=== PATIENT | female | born 1940 | race Caucasian/White ===

== ENCOUNTER 2017-07-14 03:42 | Outpatient (CLI) | payer MEDICARE, MEDICAID ==
[~2017-07-14 03:42] MED LIST: ASPI-1009 PO; ENAL1TAB9 PO; GLIM4TAB79 PO; HCTZ25T PO; LANTUS SQ; LIRA0.6P SQ; LOP25T PO
== END 2017-07-14 23:59 | disposition home or self-care (01) ==
LOC: DIABETIC 03:42
PROVIDERS: ATTEND Specialist
DX: E11.9 Type 2 diabetes mellitus without complications (principal); I10 Essential (primary) hypertension; F17.200 Nicotine dependence, unspecified, uncomplicated; Z85.3 Personal history of malignant neoplasm of breast
CPT/HCPCS: G0108

== ENCOUNTER 2017-10-20 02:55 | Outpatient (CLI) | payer MEDICARE, MEDICAID | END 2017-10-20 23:59 | disposition home or self-care (01) | LOC: DIABETIC 02:55 | PROVIDERS: ATTEND Specialist | DX: E11.22 Type 2 diabetes mellitus with diabetic chronic kidney disease (principal); I12.9 Hypertensive chronic kidney disease with stage 1 through stage 4 chronic kidney disease, or unspecified chronic kidney disease; N18.9 Chronic kidney disease, unspecified; F17.200 Nicotine dependence, unspecified, uncomplicated | CPT/HCPCS: G0108 ==

== ENCOUNTER 2022-05-20 10:07 | Day surgery (SDC) | payer MEDICARE, OTHER ==
[2022-05-19 10:15] LABS: BASOPHILS # (AUTO) 0.1 X10'3 (0-0.2); BASOPHILS % (AUTO) 0.9 % (0-1); EOSINOPHILS # (AUTO) 0.2 X10'3 (0-0.9); EOSINOPHILS % (AUTO) 2.3 % (0-6); HEMATOCRIT 39.5 % (35.0-45.0); HEMOGLOBIN 12.9 g/dl (12.0-16.0); LYMPHOCYTES # (AUTO) 0.9 X10'3 (1.1-4.8); LYMPHOCYTES % (AUTO) 12.7 % (21-51); MEAN CORPUSCULAR HEMOGLOBIN 29.3 PG (27.0-31.0); MEAN CORPUSCULAR HGB CONC 32.7 g/dL (33.0-36.5); MEAN CORPUSCULAR VOLUME 89.6 FL (78-98); MEAN PLATELET VOLUME 10.1 FL (7.4-10.4); MONOCYTES # (AUTO) 0.6 X10'3 (0-0.9); MONOCYTES % (AUTO) 9.1 % (2-12); NEUTROPHILS # (AUTO) 5.1 X10'3 (1.8-7.7); PLATELET COUNT 225 X10'3 (140-440); RED BLOOD COUNT 4.41 X10'6 (4.20-5.60); RED CELL DISTRIBUTION WIDTH 15.4 % (11.5-14.5); WHITE BLOOD COUNT 6.7 X10'3 (4.5-11.0)
[2022-05-19 10:24] LABS: ALBUMIN 3.8 G/DL (3.4-5.0); ANION GAP 8 (8-16); BLOOD UREA NITROGEN 40 MG/DL (7-18); BUN/CREATININE RATIO 27.6 (6.6-38.0); CALCIUM 9.3 MG/DL (8.5-10.1); CHLORIDE 101 MMOL/L (99-107); CREATININE 1.45 MG/DL (0.40-0.90); GLUCOSE 179 MG/DL (70-104); POTASSIUM 3.9 MMOL/L (3.5-5.1); SODIUM 139 MMOL/L (135-145); TOTAL CARBON DIOXIDE 29.6 MMOL/L (24-32); eGFR 34 ML/MIN
[2022-05-19 10:27] LABS: APTT 25 SECONDS (22-32)
[2022-05-20] VITALS (10 sets, daily range): BP systolic 137–160; BP diastolic 53–85
[~2022-05-20] VITALS: Ht 162.6 cm; Wt 87.1 kg
[~2022-05-20 10:07] MED LIST changes: -ASPI-1009 PO; +CARV12.5 PO; -ENAL1TAB9 PO; +EVOL140P3 SQ; +EZET10TA48 PO; +FURO-150 PO; +FURO40TA4 PO; +GLIM4TAB7 PO; -GLIM4TAB79 PO; -HCTZ25T PO; +LEVO75TA PO; -LIRA0.6P SQ; +LIRA0.6P2 SUBCUT; -LOP25T PO; +LORA10TA7 PO; +LOSA25TA41 PO; +MONT-40 PO; +PIOG30TA71 PO; +POTA10CA44 PO
[2022-05-20] MEDS ORDERED: acetylcysteine 200 MG/ml 4ml vial PO PRN (10:33)
[2022-05-20] MEDS ORDERED: sodium bicarbonate (8.4%) inj. 150 ML in dextrose 5%-water 1,000 ML IV ONE ×2 (10:35→15:55)
[2022-05-20] MEDS ORDERED: LORazepam 0.5 MG tablet PO PRN (10:50)
[2022-05-20] MEDS ORDERED: normal saline 1,000 ML IV SCH (10:50)
[2022-05-20] MEDS ORDERED: diphenhydrAMINE 25mg capsule PO PRN (10:50)
[2022-05-20] MEDS ORDERED: CLOP75TA15 PO (11:52)
[2022-05-20] MEDS ORDERED: AMIO200T62 PO (11:52)
[2022-05-20] MEDS ORDERED: ozempic (11:52)
[2022-05-20] MEDS ORDERED: POTA-82 PO (12:08)
[2022-05-20] MEDS ORDERED: SEMA0.25 SQ (12:08)
[2022-05-20] MEDS ORDERED: PANT40TA54 PO (12:08)
[2022-05-20] MEDS ORDERED: AMA1T PO (12:22)
[2022-05-20] MEDS ORDERED: FERR240T5 PO (12:22)
[2022-05-20] MEDS ORDERED: ACET-3209 PO (12:22)
[2022-05-20] MEDS ORDERED: MULT-1085 PO (12:22)
[2022-05-20] MEDS ORDERED: ALBU8.5H17 INH (12:22)
[2022-05-20] MEDS ORDERED: nitroGLYCERIN-Tridil 50MG/D5W 250 ML IV ONE (13:27)
[2022-05-20] MEDS ORDERED: verapamil 2.5 mg/ml inj IV ONE (13:27)
[2022-05-20] MEDS ORDERED: midazolam 1 mg/ML 2ml injection ONE (13:28)
[2022-05-20] MEDS ORDERED: iohexol 350 MG/ML 50ML vial IV ONE ×2 (13:28→14:37)
[2022-05-20] MEDS ORDERED: fentaNYL/PF 50MCG/1 ML 2ML syringe ONE (13:28)
[2022-05-20] MEDS ORDERED: LIDOcaine 1% 30ml preserv. free vial ONE (13:28)
[2022-05-20] MEDS ORDERED: heparin 1,000unit/ml 10ml vial 10 ML ONE (13:28)
[2022-05-20] MEDS ORDERED: furosemide 40mg/4ml inj ONE (14:49)
[2022-05-20 15:10] LABS: ISTAT Hct MIX 37 %PCV (35-45); ISTAT O2 SATURATION MIX VENOUS 94 % (60-80); ISTAT SOURCE BLNK
[2022-05-20 15:11] LABS: ISTAT Hct MIX 36 %PCV (35-45); ISTAT O2 SATURATION MIX VENOUS 67 % (60-80); ISTAT SOURCE VEN
[2022-05-20] MEDS ORDERED: potassium Cl 20 mEq SR tablet PO ONE (15:50)
[2022-05-20] MEDS ORDERED: furosemide 40mg/4ml inj IV ONE (15:50)
== END 2022-05-20 20:05 | disposition home or self-care (01) ==
LOC: SSTAY O 10:07
PROVIDERS: ATTEND Internal Medicine Cardiovascular Disease
DX: I25.10 Atherosclerotic heart disease of native coronary artery without angina pectoris (principal); R94.39 Abnormal result of other cardiovascular function study; I10 Essential (primary) hypertension; I50.9 Heart failure, unspecified; I11.0 Hypertensive heart disease with heart failure; J44.9 Chronic obstructive pulmonary disease, unspecified; Z79.899 Other long term (current) drug therapy; Z98.890 Other specified postprocedural states
CPT/HCPCS: 36415; 76937; 80048; 82803; 82948; 85014; 85025; 85610; 85730; 93005; 93460; 99152; 99153; C1751; C1769; J1644; J1940; J2250; J3010; J3490; J7030; J7070; Q0163; Q9967; A6258; A6402

== ENCOUNTER 2022-06-10 10:54 | Outpatient (CLI) | payer MEDICARE, OTHER ==
[~2022-06-10] VITALS: Ht 161.3 cm; Wt 81.6 kg
[~2022-06-10 10:54] MED LIST changes: +ACET-3209 PO; +ALBU8.5H17 INH; +AMA1T PO; +AMIO200T62 PO; +CLOP75TA15 PO; +FERR240T5 PO; +MULT-1085 PO; +PANT40TA54 PO; +POTA-82 PO; +SEMA0.25 SQ; +ozempic
[2022-06-10 11:39] LABS: BASOPHILS % (AUTO) 0.4 % (0-1); EOSINOPHILS # (AUTO) 0.1 X10'3 (0-0.9); EOSINOPHILS % (AUTO) 1.5 % (0-6); HEMATOCRIT 39.8 % (35.0-45.0); HEMOGLOBIN 12.9 g/dl (12.0-16.0); LYMPHOCYTES # (AUTO) 0.8 X10'3 (1.1-4.8); LYMPHOCYTES % (AUTO) 9.3 % (21-51); MEAN CORPUSCULAR HEMOGLOBIN 29.6 PG (27.0-31.0); MEAN CORPUSCULAR HGB CONC 32.3 g/dL (33.0-36.5); MEAN CORPUSCULAR VOLUME 91.5 FL (78-98); MEAN PLATELET VOLUME 10.5 FL (7.4-10.4); MONOCYTES # (AUTO) 0.5 X10'3 (0-0.9); MONOCYTES % (AUTO) 6.2 % (2-12); NEUTROPHILS # (AUTO) 7.3 X10'3 (1.8-7.7); NEUTROPHILS % (AUTO) 82.6 % (42-75); PLATELET COUNT 221 X10'3 (140-440); RED BLOOD COUNT 4.35 X10'6 (4.20-5.60); RED CELL DISTRIBUTION WIDTH 15.2 % (11.5-14.5); WHITE BLOOD COUNT 8.8 X10'3 (4.5-11.0)
[2022-06-10 11:47] LABS: APTT 25 SECONDS (22-32)
[2022-06-10 11:49] LABS: ALANINE AMINOTRANSFERASE 30 U/L (12-78); ALBUMIN 3.9 G/DL (3.4-5.0); ALBUMIN/GLOBULIN RATIO 1.1 (1.1-1.5); ALKALINE PHOSPHATASE 132 IU/L (46-116); ANION GAP 15 (8-16); ASPARTATE AMINO TRANSFERASE 24 U/L (10-37); BILIRUBIN,TOTAL 0.5 MG/DL (0.1-1.0); BLOOD UREA NITROGEN 49 MG/DL (7-18); BUN/CREATININE RATIO 31.4 (6.6-38.0); CALCIUM 9.1 MG/DL (8.5-10.1); CHLORIDE 101 MMOL/L (99-107); CREATININE 1.56 MG/DL (0.40-0.90); GLUCOSE 213 MG/DL (70-104); POTASSIUM 4.2 MMOL/L (3.5-5.1); SODIUM 141 MMOL/L (135-145); TOTAL CARBON DIOXIDE 25.4 MMOL/L (24-32); TOTAL PROTEIN 7.4 G/DL (6.4-8.2); eGFR 32 ML/MIN
[2022-06-10] MEDS ORDERED: IODIXANOL 320 MG/ML INFUS..BTL 100ML IV ONE (12:19)
[2022-06-10 14:34] LABS: ABG BASE EXCESS 0.5 mmol/L (-2.0-2.0); ABG OXYGEN SATURATION 95.2 % (94-97); ABG PCO2 (T) 35.1 mmHg (32.0-45.0); ABG PO2 (T) 75.2 mmHg (75.0-100.0); ALLEN'S TEST POSITIVE; FCOHb 0.6 % (0.0-3.9); FMetHb 0.3 % (0.0-1.5); FO2Hb 94.3 % (94-97); TOTAL HEMOGLOBIN 13.4 G/dl (12.0-16.0)
[2022-06-10] MEDS ORDERED: albuterol 2.5 MG/3 ML nebule NEB PRN (14:45)
== END 2022-06-10 23:59 | disposition home or self-care (01) ==
LOC: RAD 10:54
PROVIDERS: ATTEND Internal Medicine Cardiovascular Disease
DX: Z01.818 Encounter for other preprocedural examination (principal); J94.8 Other specified pleural conditions; E04.1 Nontoxic single thyroid nodule; I65.23 Occlusion and stenosis of bilateral carotid arteries; I70.0 Atherosclerosis of aorta; I35.0 Nonrheumatic aortic (valve) stenosis; Z87.891 Personal history of nicotine dependence; Z79.899 Other long term (current) drug therapy
CPT/HCPCS: 36415; 36600; 71046; 71275; 74174; 80053; 82803; 85018; 85025; 85610; 85730; 93880; 94060; 94727; 94729; 94760; Q9967

== ENCOUNTER 2022-08-06 08:30 | Inpatient (IN) | payer MEDICARE, OTHER ==
[2022-07-30 16:48] LABS: BASOPHILS % (AUTO) 0.1 % (0-1); EOSINOPHILS % (AUTO) 0.3 % (0-6); LYMPHOCYTES # (AUTO) 0.6 X10'3 (1.1-4.8); LYMPHOCYTES % (AUTO) 3.7 % (21-51); MEAN CORPUSCULAR HEMOGLOBIN 29.9 PG (27.0-31.0); MEAN CORPUSCULAR HGB CONC 32.8 g/dL (33.0-36.5); MEAN CORPUSCULAR VOLUME 91.2 FL (78-98); MEAN PLATELET VOLUME 11.2 FL (7.4-10.4); MONOCYTES # (AUTO) 0.9 X10'3 (0-0.9); MONOCYTES % (AUTO) 5.6 % (2-12); NEUTROPHILS # (AUTO) 14.9 X10'3 (1.8-7.7); NEUTROPHILS % (AUTO) 90.3 % (42-75); PRE OP HEMATOCRIT 30.9 % (35.0-45.0); PRE OP PLATELET COUNT 230 X10'3 (140-440); RED BLOOD COUNT 3.38 X10'6 (4.20-5.60); RED CELL DISTRIBUTION WIDTH 14.5 % (11.5-14.5)
[2022-07-30 16:51] LABS: PRE OP HEMOGLOBIN 10.1 g/dL (12.0-16.0)
[2022-07-30 16:55] LABS: PRE OP INR 1.1 INR
[2022-07-30 16:56] LABS: HEMOGLOBIN A1C 7.3 % (4.5-6.2)
[2022-07-30 17:09] LABS: ALBUMIN 2.6 G/DL (3.4-5.0); ALBUMIN/GLOBULIN RATIO 0.6 (1.1-1.5); ALKALINE PHOSPHATASE 129 IU/L (46-116); BLOOD UREA NITROGEN 60 MG/DL (7-18); BUN/CREATININE RATIO 32.4 (6.6-38.0); CALCIUM 9.1 MG/DL (8.5-10.1); CHLORIDE 94 MMOL/L (99-107); CREATININE 1.85 MG/DL (0.40-0.90); PRE OP ALT 57 U/L (30-65); PRE OP ANION GAP 11 (8-16); PRE OP AST 58 U/L (10-37); PRE OP BILIRUB, TOTAL 0.9 MG/DL (0.0-1.0); PRE OP GLUCOSE 132 MG/DL (70-104); PRE OP SODIUM 131 MMOL/L (135-145); TOTAL CARBON DIOXIDE 25.9 MMOL/L (24-32); eGFR 26 ML/MIN
[2022-07-30 17:37] LABS: PRE OP PROTIME 11.4 SECONDS (9.0-12.0)
[~2022-08-06] VITALS: Ht 162.6 cm; Wt 81.5 kg
[~2022-08-06 08:30] MED LIST changes: -ACET-3209 PO; -EVOL140P3 SQ; -FURO40TA4 PO; -GLIM4TAB7 PO; -LIRA0.6P2 SUBCUT; -LOSA25TA41 PO; -PIOG30TA71 PO; -POTA10CA44 PO; -ozempic
[2022-08-17 11:54] LABS: CLARITY,URINE SLIGHTLY CLOUDY (Clear); COLOR,URINE STRAW (Yellow); GLUCOSE, URINE NEGATIVE (Neg); KETONES,URINE NEGATIVE (Neg); LEUKOCYTE ESTERASE ,URINE NEGATIVE (Neg); NITRITES, URINE NEGATIVE (Neg); OCCULT BLOOD,URINE NEGATIVE (Neg); PH,URINE 5.5 (4.8-8.0); PROTEIN,URINE NEGATIVE (Neg); UROBILINOGEN,URINE 0.2 E.U/dL (0.2-1.0)
[2022-08-17 12:00] LABS: UA COLLECTION TYPE CLN CATCH MIDSTREAM
[2022-08-17 12:01] LABS: SQUAMOUS EPITHELIAL CELL,UR FEW /LPF (FEW)
[2022-08-17 12:02] LABS: BACTERIA,URINE 1+ /HPF (Neg); RBC,URINE 0-2 /HPF (0-2); WBC,URINE 0-4 /HPF (0-4)
[2022-08-17 12:07] LABS: BASOPHILS # (AUTO) 0.1 X10'3 (0-0.2); BASOPHILS % (AUTO) 0.8 % (0-1); EOSINOPHILS # (AUTO) 0.2 X10'3 (0-0.9); EOSINOPHILS % (AUTO) 1.4 % (0-6); LYMPHOCYTES # (AUTO) 0.9 X10'3 (1.1-4.8); MEAN CORPUSCULAR HEMOGLOBIN 29.5 PG (27.0-31.0); MEAN CORPUSCULAR VOLUME 92.2 FL (78-98); MEAN PLATELET VOLUME 10.5 FL (7.4-10.4); MONOCYTES # (AUTO) 0.9 X10'3 (0-0.9); NEUTROPHILS # (AUTO) 9.4 X10'3 (1.8-7.7); NEUTROPHILS % (AUTO) 81.8 % (42-75); PRE OP HEMATOCRIT 31.9 % (35.0-45.0); PRE OP PLATELET COUNT 261 X10'3 (140-440); RED BLOOD COUNT 3.46 X10'6 (4.20-5.60)
[2022-08-17 12:13] LABS: PRE OP HEMOGLOBIN 10.2 g/dL (12.0-16.0)
[2022-08-17 12:18] LABS: PRE OP INR 1.1 INR; PRE OP PROTIME 11.2 SECONDS (9.0-12.0)
[2022-08-17 12:22] LABS: ALBUMIN 3.3 G/DL (3.4-5.0); ALBUMIN/GLOBULIN RATIO 0.9 (1.1-1.5); ALKALINE PHOSPHATASE 105 IU/L (46-116); BLOOD UREA NITROGEN 51 MG/DL (7-18); BUN/CREATININE RATIO 34.7 (6.6-38.0); CALCIUM 8.9 MG/DL (8.5-10.1); CHLORIDE 97 MMOL/L (99-107); CREATININE 1.47 MG/DL (0.40-0.90); PRE OP ALT 30 U/L (30-65); PRE OP ANION GAP 5 (8-16); PRE OP AST 30 U/L (10-37); PRE OP BILIRUB, TOTAL 0.5 MG/DL (0.0-1.0); PRE OP SODIUM 135 MMOL/L (135-145); TOTAL CARBON DIOXIDE 33.1 MMOL/L (24-32); TOTAL PROTEIN 6.9 G/DL (6.4-8.2); eGFR 34 ML/MIN
[2022-08-17 12:27] LABS: PRE OP GLUCOSE 221 MG/DL (70-104)
[2022-08-20] VITALS (24 sets, daily range): BP systolic 106–189; BP diastolic 30–86
[2022-08-20] MEDS ORDERED: vancomycin 1,500 MG in NS 300ml IV soln IV ONE (05:30)
[2022-08-20] MEDS ORDERED: famotidine 20mg tablet PO ONE (05:30)
[2022-08-20] MEDS ORDERED: DOCUMENT DATE & TIME OF BETA-BLOCKER PO ONE (05:30)
[2022-08-20] MEDS ORDERED: nitroPRUSSIDE (NIPRIDE) (200MCG/ML) 100ML Drip IV SCH (05:30)
[2022-08-20] MEDS ORDERED: ondansetron/PF 4mg/2ml inj IV PRN ×3 (05:30→10:35)
[2022-08-20] MEDS ORDERED: phenylephrine inj 50 MG in normal saline 250ml IV solN IV SCH (06:00)
[2022-08-20] MEDS ORDERED: aspirin 325mg tablet PO ONE (06:00)
[2022-08-20] MEDS ORDERED: protamine sulfate 10mg/ml inj. ONE (06:05)
[2022-08-20] MEDS ORDERED: LIDOcaine 1% (10mg/ml) 2ml vial ONE (06:31)
[2022-08-20] MEDS ORDERED: morphine 2 MG/ML inj. syringe IV PRN (07:10)
[2022-08-20] MEDS ORDERED: fentaNYL/PF 50MCG/1 ML 2ML syringe IV PRN ×2 (07:10)
[2022-08-20] MEDS ORDERED: hydrALAZINE 20mg/ml inj. IV PRN ×2 (07:10→10:35)
[2022-08-20] MEDS ORDERED: ringers solution, lacted 1,000 ML IV SCH (07:10)
[2022-08-20] MEDS ORDERED: labetalol 20mg/4ml (5mg/ml) syringe IV PRN ×2 (07:10→10:35)
[2022-08-20] MEDS ORDERED: morphine 4 MG/ML inj SYRINge IV PRN (07:10)
[2022-08-20] MEDS: normal saline 500ml IV soln 500 ML IV SCH (07:39)
--- NOTE | 2022-08-20 07:40 | NUR ---
BETA BENJI TQAKEN 08-19-22 IN THE AM
[2022-08-20] MEDS ORDERED: LIDOcaine 1% 30ml preserv. free vial ONE (08:52)
[2022-08-20] MEDS ORDERED: iohexol 350 MG/ML 50ML vial IV ONE ×2 (08:52→08:57)
[2022-08-20] MEDS ORDERED: heparin 1,000 UNITS/NS 500ml 1,500 ML ONE (08:52)
[2022-08-20] MEDS ORDERED: iohexol 350MG/ML 100ml bottle IV ONE (08:52)
[2022-08-20] MEDS ORDERED: sevoflurane 250ml liquid IH ONE (09:01)
[2022-08-20] MEDS ORDERED: fentaNYL/PF 50MCG/1 ML 2ML syringe ONE (09:07)
[2022-08-20] MEDS ORDERED: propofol inj 20 ML IV ONE (10:26)
[2022-08-20] MEDS ORDERED: heparin 1,000unit/ml 10ml vial 10 ML ONE (10:26)
[2022-08-20] MEDS ORDERED: potassium Cl 20mEq/100mL bag 100 ML IV PRN (10:35)
[2022-08-20] MEDS ORDERED: dextrose 50%-water 50ml dispensing syringe IV PRN ×2 (10:35)
[2022-08-20] MEDS ORDERED: glucagon, human recombinant 1mg kit SUBCUT PRN (10:35)
[2022-08-20] MEDS ORDERED: magnesium 4gm in 100ml NS 100 ML IV PRN (10:35)
[2022-08-20] MEDS ORDERED: proCHLORperazine 10 MG/2 ml inj IV PRN (10:35)
[2022-08-20] MEDS ORDERED: ALPRAZolam 0.25mg tablet PO PRN (10:35)
[2022-08-20] MEDS ORDERED: acetaminophen 325mg tablet PO PRN (10:35)
[2022-08-20] MEDS ORDERED: insulin regular, human U-100 3ml vial - multi-dose SQ SCH (10:35)
[2022-08-20] MEDS ORDERED: DEXTROSE 15 GM of carb/4 tabs (each vial/BOTTLE has 4 tablets) PO PRN ×2 (10:35)
[2022-08-20] MEDS ORDERED: potassium Cl 20 mEq SR tablet PO PRN (10:35)
[2022-08-20] MEDS ORDERED: pantoprazole 40mg Tablet.DR PO PRN (10:35)
[2022-08-20] MEDS ORDERED: magnesium 2GM in 50ml NS 50 ML IV PRN (10:35)
[2022-08-20] MEDS ORDERED: potassium Cl 40MEQ/270ML bag 250 ML IV PRN (10:35)
[2022-08-20] MEDS ORDERED: potassium Cl 40MEQ/1/2NS 520ml 520 ML IV PRN (10:35)
[2022-08-20] MEDS ORDERED: potassium CL 10mEq/100ml bag 100 ML IV PRN (10:35)
[2022-08-20] MEDS ORDERED: MESSAGE TO PHARMACY PO ONE (10:35)
[2022-08-20] MEDS ORDERED: diphenhydrAMINE 25mg capsule PO PRN (10:35)
[2022-08-20] MEDS ORDERED: docusate sod 100mg capsule PO PRN (10:35)
--- NOTE | 2022-08-20 10:37 | NUR ---
Received from OR via HOSPITAL BED, accompanied by Anesthesiologist DR AMBROSE and report given by AnesthESIOLOGIST DR AMBROSE. PT PRESENTS WITH PIV 20G RIGHT FOREARM, ART LINE RIGHT WRIST, PEDAL PULSES FOUND WITH DOPPLER. VSS. Addendum: 08/20/22 at 1130 by Denise Morgan RN, RN Amended: Links added.
--- NOTE | 2022-08-20 11:00 | NUR ---
DR SOMERS AT BEDSIDE. PT HAS BRUISING ON RIGHT GROIN. DR SOMERS REPORTS THAT THE BRUISING IS FROM A DIFFERENT PROCEDURE FROM A FEW MONTHS AGO. Addendum: 08/20/22 at 1147 by Denise Morgan RN, RN Amended: Links added.
--- NOTE | 2022-08-20 12:45 | NUR ---
Patient in room PCU 3023. I have received report from Denise CALLEJAS and had the opportunity to ask questions and assume patient care. Pt settled into room. No distress. VS [place], adeolact site [facility]. Addendum: 08/20/22 at 1356 by Anitra Monteiro RN Amended: Links added.
--- NOTE | 2022-08-20 12:47 | NUR ---
Report called to receiving nurse NAUN CALLEJAS. Transferred via HOSPITAL BED WITH MONITOR TO ROOM 3023C BY IRENE CALLEJAS AND KING CALLEJAS. BED IN LOW LOCKED POSITION, CALL LIGHT IN REACH. Belongings TAKEN TO ROOM 3023C , ONE PT BELINGING BAG. Special Issues communicated to receiving nurse. Addendum: 08/20/22 at 1252 by Denise Morgan RN, RN Amended: Links added.
[2022-08-20] MEDS: normal saline 1000ml 1,000 ML IV SCH ×2 (13:00→20:35)
--- NOTE | 2022-08-20 13:29 | NUR ---
Per EMR pt with T2DM, well controlled for geriatric age with A1c 7.3%, DM education not warranted at this time. Will continue to follow. Addendum: 08/20/22 at [address] Amended: Links added.
[2022-08-20] MEDS ORDERED: albuterol 2.5 MG/3 ML nebule NEB PRN (14:20)
[2022-08-20] MEDS: sod chloride 0.9% 10ml flush syringe IV SCH (15:02)
[2022-08-20] MEDS ORDERED: ceFAZolin 1GM/D5W- ADD-VANTAGE 50 ML IV SCH (16:00)
--- NOTE | 2022-08-20 18:25 | NUR ---
Patient in room PCU 3023. I have received report from Anitra CALLEJAS and had the opportunity to ask questions and assume patient care.
--- NOTE | 2022-08-20 18:26 | NUR ---
Problems reprioritized. Patient report given, questions answered & plan of care reviewed with Dayana MEDLEY. Bedside report completed. Pt no distress.Call light in reach. Groin sites unchanged. Addendum: 08/20/22 at 1827 by Anitra Monteiro RN Amended: Links added.
[2022-08-20] MEDS: vancomycin/NS 1 GM ADD-VANTAGE 250 ML IV SCH (20:28)
[2022-08-20] MEDS: carvedilol 6.25mg tablet PO SCH (20:38)
[2022-08-20] MEDS ORDERED: insulin glargine (Lantus) pen - multi-dose SQ SCH (21:00)
[2022-08-21 02:00] VITALS: BP 118/34
[2022-08-21 06:00] VITALS: BP 116/36
--- NOTE | 2022-08-21 06:13 | NUR ---
Problems reprioritized. Patient report given, questions answered & plan of care reviewed with Anitra CALLEJAS.
--- NOTE | 2022-08-21 06:21 | NUR ---
Patient in room PCU 2432J. I have received report from and had the opportunity to ask questions and assume patient care.Bedside report ccompleted. Groin sites stable. Call light in reach. Addendum: 08/21/22 at 0622 by Anitra Monteiro RN Amended: Links added.
[2022-08-21] MEDS: normal saline 500ml IV soln 500 ML IV SCH (06:30)
[2022-08-21] MEDS: normal saline 1000ml 1,000 ML IV SCH (06:35)
--- NOTE | 2022-08-21 06:53 | NUR ---
Pt C/O urinating in bed. Linen change provided. Pt C/O feeling cold all the time. Warm blanket given. Pt C/O her cell phone being , Tub Washer provided. Addendum: 08/21/22 at 0655 by Anitra Monteiro RN wrong PT
[2022-08-21 07:43] LABS: BASOPHILS % (AUTO) 0.7 % (0-1); EOSINOPHILS # (AUTO) 0.3 X10'3 (0-0.9); EOSINOPHILS % (AUTO) 5.7 % (0-6); HEMATOCRIT 23.8 % (35.0-45.0); HEMOGLOBIN 7.6 g/dl (12.0-16.0); LYMPHOCYTES # (AUTO) 0.7 X10'3 (1.1-4.8); LYMPHOCYTES % (AUTO) 12.7 % (21-51); MEAN CORPUSCULAR HEMOGLOBIN 29.7 PG (27.0-31.0); MEAN CORPUSCULAR HGB CONC 31.8 g/dL (33.0-36.5); MEAN CORPUSCULAR VOLUME 93.1 FL (78-98); MEAN PLATELET VOLUME 10.6 FL (7.4-10.4); MONOCYTES # (AUTO) 0.6 X10'3 (0-0.9); MONOCYTES % (AUTO) 10.5 % (2-12); NEUTROPHILS % (AUTO) 70.4 % (42-75); PLATELET COUNT 149 X10'3 (140-440); RED BLOOD COUNT 2.55 X10'6 (4.20-5.60); RED CELL DISTRIBUTION WIDTH 15.6 % (11.5-14.5); WHITE BLOOD COUNT 5.7 X10'3 (4.5-11.0)
[2022-08-21] MEDS: carvedilol 6.25mg tablet PO SCH (07:52)
[2022-08-21] MEDS: vancomycin/NS 1 GM ADD-VANTAGE 250 ML IV SCH (07:54)
[2022-08-21] MEDS ORDERED: potassium Cl 20 mEq SR tablet PO SCH (08:00)
[2022-08-21] MEDS ORDERED: pantoprazole 40mg Tablet.DR PO SCH (08:00)
[2022-08-21] MEDS ORDERED: clopidogrel 75mg tablet PO SCH (08:00)
[2022-08-21] MEDS ORDERED: ezetimibe 10mg tablet PO SCH (08:00)
[2022-08-21] MEDS: sod chloride 0.9% 10ml flush syringe IV SCH ×2 (08:00)
[2022-08-21] MEDS ORDERED: amiodarone 200mg tablet PO SCH (08:00)
[2022-08-21] MEDS ORDERED: ferrous gluconate 324mg tablet PO SCH (08:00)
[2022-08-21] MEDS ORDERED: furosemide 20MG tablet PO SCH (08:00)
[2022-08-21 08:05] LABS: ALANINE AMINOTRANSFERASE 18 U/L (12-78); ALBUMIN 2.7 G/DL (3.4-5.0); ALBUMIN/GLOBULIN RATIO 0.9 (1.1-1.5); ALKALINE PHOSPHATASE 78 IU/L (46-116); ANION GAP 5 (8-16); ASPARTATE AMINO TRANSFERASE 24 U/L (10-37); BILIRUBIN,TOTAL 0.4 MG/DL (0.1-1.0); BLOOD UREA NITROGEN 39 MG/DL (7-18); BUN/CREATININE RATIO 35.8 (6.6-38.0); CALCIUM 8.2 MG/DL (8.5-10.1); CHLORIDE 103 MMOL/L (99-107); CREATININE 1.09 MG/DL (0.40-0.90); GLUCOSE 214 MG/DL (70-104); MAGNESIUM 2.2 MG/DL (1.5-2.4); POTASSIUM 3.7 MMOL/L (3.5-5.1); SODIUM 138 MMOL/L (135-145); TOTAL PROTEIN 5.6 G/DL (6.4-8.2); eGFR 48 ML/MIN
[2022-08-21] MEDS: insulin Lispro (HumaLOG) vial - multi-dose SQ SCH ×2 (09:07→14:10)
[2022-08-21 09:12] LABS: ANISOCYTOSIS 1+; LARGE PLATELETS FEW
[2022-08-21 09:13] LABS: POLYCHROMASIA 1+
[2022-08-21 09:14] LABS: PLATELET ESTIMATE NORMAL
[2022-08-21 10:15] VITALS: BP 114/32
--- NOTE | 2022-08-21 15:09 | NUR ---
All written and verbal orders for D/C given, all questions answered. Pt stated she had all belongs. post op activity instructions reviewed. Pt groin site [place] [facility]. Pt left hospital via W/C, home with family Addendum: 08/21/22 at 1512 by Anitra Monteiro RN Amended: Links added.
== END 2022-08-21 14:45 | disposition home or self-care (01) | DRG 266 ==
LOC: PAS IN 08-20 06:22 → PCU 3S 08-20 12:52
PROVIDERS: ADMIT Internal Medicine Cardiovascular Disease; ATTEND Internal Medicine Cardiovascular Disease
PROC: B41D1ZZ Fluoroscopy of Aorta and Bilateral Lower Extremity Arteries using Low Osmolar Contrast (ICD-10-PCS; 2022-08-20)
PROC: 02RF38Z Replacement of Aortic Valve with Zooplastic Tissue, Percutaneous Approach (ICD-10-PCS; principal; 2022-08-20 09:01)
DX: I35.0 Nonrheumatic aortic (valve) stenosis (principal); Z00.6 Encounter for examination for normal comparison and control in clinical research program; I50.33 Acute on chronic diastolic (congestive) heart failure; I13.0 Hypertensive heart and chronic kidney disease with heart failure and stage 1 through stage 4 chronic kidney disease, or unspecified chronic kidney disease; I25.10 Atherosclerotic heart disease of native coronary artery without angina pectoris; E03.9 Hypothyroidism, unspecified; E11.22 Type 2 diabetes mellitus with diabetic chronic kidney disease; E11.65 Type 2 diabetes mellitus with hyperglycemia; E78.5 Hyperlipidemia, unspecified; N18.30 Chronic kidney disease, stage 3 unspecified; I48.0 Paroxysmal atrial fibrillation; J44.9 Chronic obstructive pulmonary disease, unspecified; K44.9 Diaphragmatic hernia without obstruction or gangrene; Z87.11 Personal history of peptic ulcer disease; Z90.10 Acquired absence of unspecified breast and nipple; Z85.3 Personal history of malignant neoplasm of breast; Z85.72 Personal history of non-Hodgkin lymphomas; Z92.21 Personal history of antineoplastic chemotherapy; Z92.3 Personal history of irradiation; Z95.5 Presence of coronary angioplasty implant and graft; Z99.81 Dependence on supplemental oxygen; Z88.0 Allergy status to penicillin; Z88.8 Allergy status to other drugs, medicaments and biological substances
CPT/HCPCS: 33361; 36415; 36430; 71045; 71046; 76937; 80053; 81001; 82948; 83036; 83735; 83880; 84443; 85008; 85025; 85347; 85610; 85730; 86885; 86900; 86901; 86920; 87081; 93005; 93308; A4615; A4618; A6258; A6449; C1756; C1760; C1769; C1892; C1894; G0378; J1644; J1815; J2370; J2704; J2720; J3010; J3370; J3490; J7030; J7040; J7050; J7120; Q9967

== ENCOUNTER 2022-09-14 11:20 | Outpatient (CLI) | payer MEDICARE, OTHER | END 2022-09-14 23:59 | disposition home or self-care (01) | LOC: RAD 11:20 | PROVIDERS: ATTEND Internal Medicine Cardiovascular Disease | DX: Z48.812 Encounter for surgical aftercare following surgery on the circulatory system (principal); I34.81 Nonrheumatic mitral (valve) annulus calcification; I51.7 Cardiomegaly; R00.1 Bradycardia, unspecified; I44.7 Left bundle-branch block, unspecified; Z95.2 Presence of prosthetic heart valve | CPT/HCPCS: 93005; 93306 ==

== ENCOUNTER 2025-01-13 17:49 | Emergency (ER) | payer MEDICARE, OTHER ==
[~2025-01-13] VITALS: Ht 162.6 cm; Wt 80.0 kg
[~2025-01-13 17:49] MED LIST changes: -ALBU8.5H17 INH; -AMA1T PO; -AMIO200T62 PO; +AMIO200T72 PO; +APIX5TAB3 PO; +BUDE10.22 INH; -FERR240T5 PO; +GLIM2TAB6; +LACT1CAP26 PO; -LANTUS SQ; +LANTUS SUBCUT; +LINA5TAB4 PO; -LORA10TA7 PO; +POTA-366 PO; -POTA-82 PO; +PRED10TA PO; -SEMA0.25 SQ
[2025-01-13 18:22] LABS: BASOPHILS # (AUTO) 0.1 X10'3 (0-0.2); BASOPHILS % (AUTO) 0.4 % (0-1); EOSINOPHILS % (AUTO) 0.3 % (0-6); HEMATOCRIT 37.8 % (35.0-45.0); HEMOGLOBIN 12.4 g/dl (12.0-16.0); LYMPHOCYTES # (AUTO) 0.6 X10'3 (1.1-4.8); LYMPHOCYTES % (AUTO) 4.3 % (21-51); MEAN CORPUSCULAR HEMOGLOBIN 29.3 PG (27.0-31.0); MEAN CORPUSCULAR HGB CONC 32.9 g/dL (33.0-36.5); MEAN CORPUSCULAR VOLUME 89.1 FL (78-98); MEAN PLATELET VOLUME 10.9 FL (7.4-10.4); MONOCYTES # (AUTO) 0.5 X10'3 (0-0.9); MONOCYTES % (AUTO) 3.6 % (2-12); NEUTROPHILS # (AUTO) 12.4 X10'3 (1.8-7.7); NEUTROPHILS % (AUTO) 91.4 % (42-75); PLATELET COUNT 196 X10'3 (140-440); RED BLOOD COUNT 4.24 X10'6 (4.20-5.60); RED CELL DISTRIBUTION WIDTH 16.8 % (11.5-14.5); WHITE BLOOD COUNT 13.6 X10'3 (4.5-11.0)
--- NOTE | 2025-01-13 18:34 | Physician Documentation ---
History of Present Illness ~ Chief Complaint: Abdominal Pain w/vomiting Stated Complaint: "I THINK I HAVE PANCREATITIS" Time Seen by MD: 18:11 Primary Medical Doctor: Mode of Arrival: POV, Ambulatory HPI 84-year-old female presenting with abdominal pain. She tells me that she has been having off and on abdominal pain over the last couple of weeks. She tells me it is generalized, worse with movement, worse with eating. She has not really been eating anything. She feels dehydrated. She reports nausea and generalized weakness. She also reports some dysuria. She reports having chills. No vomiting. No diarrhea. Last bowel movement today. No fevers. She has had her gallbladder removed. She still has her appendix. Nothing makes her symptoms better. She tells me she had a CT scan about 2 weeks ago, that did not show an obvious cause. Medication Reconciliation Allergies: Coded Allergies: Penicillins (Verified Allergy, Unknown, SWELLING, 08/19/22) [id number] Reductase Inhibitor (Verified Allergy, Unknown, 04/20/12) meperidine HCl (Verified Allergy, Unknown, 04/20/12) hydrocodone bit (Verified Adverse Reaction, Unknown, HALLUCINATES, 08/13/21) Scheduled Amiodarone HCl* (Amiodarone HCl*), 1 TAB PO DAILY, (Reported) Apixaban (Eliquis), 5 MG PO BID Budesonide/Formoterol Fumarate (Symbicort 80-4.5 Mcg Inhaler), 2 PUFFS INH Q12H Carvedilol (Coreg), 0.5 TAB PO BID, (Reported) Clopidogrel Bisulfate (Plavix), 1 TAB PO DAILY, (Reported) Ezetimibe (Ezetimibe), 1 TAB PO DAILY, (Reported) Furosemide* (Lasix*), 2 TAB PO DAILY, (Reported) Insulin Glargine,Hum.rec.anlog* (Lantus*), 20 UNITS SUBCUT BID, (Reported) Lactobacillus Rhamnosus (Culturelle), 1 CAP PO DAILY Levothyroxine Sodium* (Synthroid*), 1 TAB PO DAILY, (Reported) Linagliptin (Tradjenta), 1 TAB PO DAILY, (Reported) Montelukast Sodium (Montelukast Sodium), 1 TAB PO DAILY, (Reported) Multivitamin (Multi Vitamin Daily), 1 TAB PO DAILY, (Reported) Pantoprazole Sodium (Pantoprazole Sodium), 1 TAB PO DAILY, (Reported) Potassium Chloride (Potassium Chloride), 1 TAB PO DAILY, (Reported) Prednisone (Prednisone), 10 TAB PO DAILY Miscellaneous Medications Glimepiride (Glimepiride), 1 TABLET, (Reported) Past Medical History Past Medical History: Aortic Stenosis, Congestive Heart Failure, High Cholesterol, Heart Valve Disease, Hypertension, Valve Insuffciency Past Surgical History: heart valve surgery Patient History: FH: diabetes mellitus Alcohol Use: None Drug Use: none Lives with: Family Lives In: Home Occupation: retired Review of Systems Constitutional: Reports: chills; Denies: fever Gastrointestinal: Reports: abdominal pain, nausea; Denies: vomiting, diarrhea Physical Exam Vital Signs: Temperature: 99.3, Source: Oral, Heart Rate: 83, Respiratory Rate: 16, BP: 173/77, Pulse Oximetry: 97, Weight: 80.000 Oxygen Flow Rate: 0 Physical Exam General: This is a pleasant elderly woman, daughter at bedside HEENT: Atraumatic, oropharynx is dry cracked lips Heart: Regular rate and rhythm, normal-appearing peripheral perfusion Lungs: Clear breath sounds bilateral, normal work of breathing, normal oxygen saturation on room air Abdomen: Soft, nondistended, the patient has tenderness and voluntary guarding diffusely on palpation, also appears uncomfortable with movement Neuro: Alert and oriented, no focal deficits Psychiatric: Calm and cooperative with exam Progress Results/Orders Results/Orders Orders - RUCHI FRANCO MD General Nursing Order (01/13/25 ) Ct Abdomen Pelvis (01/13/25 19:33) Completed Orders - RUCHI FRANCO MD Ondansetron Inj. (Zofran 4mg/2ml Vial) (01/13/25 18:30) Normal Saline 1000ml (Sodium Chloride 10 (01/13/25 18:30) Morphine 2mg/Ml Inj. (Morphine Inj.) (01/13/25 18:30) Ct Abdomen Pelvis (01/13/25 19:33) Iohexol 300mg/Ml 100ml Inj. (Omnipaque-3 (01/13/25 19:47) Morphine 4mg/Ml Inj. (Morphine Inj.) (01/13/25 20:45) Ciprofloxacin Lact 400mg/200ml (Ciproflo (01/14/25 08:00) Metronidazole-Flagyl 500mg/Ns (Flagyl 50 (01/13/25 20:42) Ciprofloxacin Lact 400mg/200ml (Ciproflo (01/13/25 21:33) Hydromorphone 1 Mg/Ml/Pf (Dilaudid Inj.) (01/13/25 22:00) Medications Received in ER Medications (Trade) Dose Ordered Sig/Tara Route PRN Reason Start Time Stop Time Status Last Admin Dose Admin (Dilaudid inj.) 1 mg ONCE ONCE IV 01/13/25 22:00 01/13/25 22:16 DC 01/13/25 22:45 1 MG Vital Signs 01/13/25 01/13/25 01/13/25 01/13/25 17:57 18:20 18:25 19:23 Temp 99.3 Pulse 88 83 Resp 20 16 16 15 B/P (MAP) 181/66 173/77 (109) Pulse Ox 97 97 O2 Flow Rate 0 01/13/25 01/13/25 01/13/25 01/13/25 19:27 20:36 20:56 22:00 Pulse 76 98 94 Resp 18 18 16 18 B/P (MAP) 158/68 (98) 112/85 (94) 122/80 (94) Pulse Ox 99 98 98 O2 Flow Rate 0 01/13/25 01/14/25 22:45 00:00 Temp 98.3 Pulse 91 Resp 16 18 B/P (MAP) 126/80 Pulse Ox 99 Laboratory Tests Test 01/13/25 18:13 01/13/25 20:35 White Blood Count 13.6 H Red Blood Count 4.24 Hemoglobin 12.4 Hematocrit 37.8 Mean Corpuscular Volume 89.1 Mean Corpuscular Hemoglobin 29.3 Mean Corpuscular Hemoglobin Concent 32.9 L Red Cell Distribution Width 16.8 H Platelet Count 196 Mean Platelet Volume 10.9 H Neutrophils (%) (Auto) 91.4 H Lymphocytes (%) (Auto) 4.3 L Monocytes (%) (Auto) 3.6 Eosinophils (%) (Auto) 0.3 Basophils (%) (Auto) 0.4 Neutrophils # (Auto) 12.4 H Lymphocytes # (Auto) 0.6 L Monocytes # (Auto) 0.5 Eosinophils # (Auto) 0.0 Basophils # (Auto) 0.1 CBC Comment Sodium Level 134 L Potassium Level 4.7 Chloride Level 101 Carbon Dioxide Level 25.2 Anion Gap 8 Blood Urea Nitrogen 29 H Creatinine 1.37 H Estimated GFR/1.73 m2 37 BUN/Creatinine Ratio 21.2 H Glucose Level 257 H Calcium Level 8.9 Total Bilirubin 0.8 Aspartate Amino Transf (AST/SGOT) 24 Alanine Aminotransferase (ALT/SGPT) 28 Alkaline Phosphatase 105 Total Protein 7.0 Albumin 3.5 Globulin 3.5 Albumin/Globulin Ratio 1.0 L Lipase 27 Chemistry Comments Urine Specimen Description Non-specified Urine Color Yellow Urine Clarity Clear Urine pH 6.0 Urine Specific [place] 1.010 Urine Protein 100 H Urine Glucose (UA) 100 H Urine Ketones Negative Urine Occult Blood Trace-intact Urine Nitrite Negative Urine Bilirubin Negative Urine Urobilinogen 0.2 Urine Leukocyte Esterase Negative Urine RBC 0-2 Urine WBC 50-100 H Urine WBC Clumps Moderate Urine Squamous Epithelial Cells Few Urine Bacteria 4+ Urine Culture Indicated Indicated Volume Urine Centrifuged 10 ml Urine Comment Microbiology Date/Time Source Procedure Growth Status 01/13/25 20:58 Urine Nonspecified Urine Culture - Preliminary Culture received. Resulted EKG/XRAY/CT/US/VASC/MRI CT : Impression I personally reviewed the CT scan, and this shows inflammatory changes in the right lower quadrant, appears to have some free fluid, no free air Consults/PCP Consults/PCP : Additional Comment Consult: I spoke to Dr. Shi, general surgery. He recommends transfer for interventional radiology drain placement. Consult: I spoke to Dr. Ellington, hospitalist at [facility]. He will accept for transfer. Medical Decision Making Additional info obtained from: old records Findings Reviewed past records for previous CT scan results Diff Dx N/V/D:Considerations: Include: Appendicitis, Bowel obstruction, Dehydration, Diarrhea - bacterial, Diverticulitis, Electrolyte imbalance, Gastroenteritis, GI bleed, Hepatitis, Pancreatitis, Renal failure, Urolithiasis, UTI Assessment 84-year-old female presenting with generalized abdominal tenderness. On exam she is quite tender diffusely and she appears clinically dehydrated.. She was given pain and nausea medicine and IV fluids for hydration. Labs show a new leukocytosis. After shared decision-making conversation, we decided to proceed with a CT scan with contrast, in spite of her chronic kidney disease, given the previous noncontrast CT scan did not show an obvious cause for her pain. CT scan shows findings concerning for perforated appendicitis with an abscess. Surgical team consulted as above. She will be transferred for interventional radiology drain placement and further treatment. She was given antibiotics, was given Cipro and Flagyl given her severe penicillin allergy. She was given multiple doses of pain medication with good control of her pain. Departure Impression: Primary Impression: Acute perforated appendicitis Additional Impression: Generalized abdominal pain Referrals: NO PRIMARY CARE PROVIDER (PCP) Signature Scribe Signature: remy Attestation: RUCHI Breaux MD Jan 13, 2025 18:34
[2025-01-13 18:35] LABS: ALANINE AMINOTRANSFERASE 28 U/L (12-78); ALBUMIN 3.5 G/DL (3.4-5.0); ALKALINE PHOSPHATASE 105 IU/L (46-116); ANION GAP 8 (8-16); ASPARTATE AMINO TRANSFERASE 24 U/L (10-37); BILIRUBIN,TOTAL 0.8 MG/DL (0.1-1.0); BLOOD UREA NITROGEN 29 MG/DL (7-18); BUN/CREATININE RATIO 21.2 (10.0-20.0); CALCIUM 8.9 MG/DL (8.5-10.1); CHLORIDE 101 MMOL/L (99-107); CREATININE 1.37 MG/DL (0.40-0.90); GLUCOSE 257 MG/DL (70-104); LIPASE 27 U/L (16-77); POTASSIUM 4.7 MMOL/L (3.5-5.1); SODIUM 134 MMOL/L (135-145); TOTAL CARBON DIOXIDE 25.2 MMOL/L (24-32); eCRCL 26 ML/MIN; eGFR 37 ML/MIN
[2025-01-13] MEDS: ondansetron/PF 4mg/2ml inj IV ONE (19:23)
[2025-01-13] MEDS: morphine 2 MG/ML inj. syringe IV ONE (19:23)
[2025-01-13] MEDS: normal saline 1000ml 1,000 ML IV ONE (19:23)
[2025-01-13] MEDS ORDERED: iohexol 300mg/ml 100ml inj. ONE (19:47)
--- NOTE | 2025-01-13 20:25 | RADIOLOGY REPORT ---
Exam: CT CT ABDOMEN PELVIS W/ IV CONTRAST History: Generalized abdominal pain, peritonitis Comparison Study: None TECHNIQUE: A digital rug clipper image was obtained. During the uneventful, intravenous administration of c ontrast material, multislice data acquisition was obtained through the abdomen and pelvis. The data s et was subsequently reconstructed into multiplanar reformats. RADIATION DOSE: DLP 1323.47 mGy.cm; CTDI vol 26.5 mGy. Findings: Liver: Mildly nodular hepatic contour. Spleen: Unremarkable. Pancreas: Unremarkable. Gallbladder: Prior cholecystectomy. Adrenals: Unremarkable Kidneys: Bilateral renal cortical atrophy and too small to characterize lesions. Left renal cyst. No hydronephrosis. Pelvic Viscera: Status post hysterectomy. Vasculature: Atherosclerotic aortoiliac calcification. Retroperitoneum: Shotty retroperitoneal nodes. Bowel: There is colonic diverticulosis. The midportion of the appendix is dilated up to 12 mm. There is a multiloculated fluid collection in the expected region of the appendiceal tip, measuring up to 3 .2 cm, with surrounding fluid. No bowel obstruction. Musculoskeletal: Extensive degenerative changes of the lumbar spine with posterior fusion hardware at L4-5. Soft tissues: Unremarkable. Lungs: Bibasilar atelectasis. Incompletely assessed calcified pleural plaques. Impression: 1. Findings as above most suggestive of acute appendicitis with probable rupture. An appendiceal muc ocele cannot be entirely excluded. Further clinical correlation is suggested. 2. Additional findings as detailed.
[2025-01-13 20:49] LABS: BILIRUBIN,URINE NEGATIVE (Neg); CLARITY,URINE CLEAR (Clear); COLOR,URINE YELLOW (Yellow); GLUCOSE, URINE 100 mg/dl (Neg); KETONES,URINE NEGATIVE (Neg); LEUKOCYTE ESTERASE ,URINE NEGATIVE (Neg); NITRITES, URINE NEGATIVE (Neg); OCCULT BLOOD,URINE TRACE-INTACT (Neg); PROTEIN,URINE 100 mg/dl (Neg); UROBILINOGEN,URINE 0.2 E.U/dL (0.2-1.0)
[2025-01-13] MEDS: metroNIDAZOLE-Flagyl 500mg/NS 100 ML IV STA (20:56)
[2025-01-13] MEDS: morphine 4 MG/ML inj SYRINge IV ONE (20:56)
[2025-01-13 20:57] LABS: UA COLLECTION TYPE NON-SPECIFIED
[2025-01-13 20:58] LABS: BACTERIA,URINE 4+ /HPF (Neg); RBC,URINE 0-2 /HPF (0-2); SQUAMOUS EPITHELIAL CELL,UR FEW /LPF (FEW); WBC CLUMPS,URINE MODERATE /HPF (NEGATIVE); WBC,URINE 50-100 /HPF (0-4)
[2025-01-13] MEDS: ciprofloxacin lact 400MG/200ML 200 ML IV STA (22:03)
[2025-01-13] MEDS: HYDROmorphone 1 mg/ml syringe IV ONE (22:45)
[2025-01-14] VITALS: BP 126/80; PULSE 91; RESP 18; TEMP 98.3; O2SAT 99
[2025-01-14] MEDS ORDERED: ciprofloxacin lact 400MG/200ML 200 ML IV ONE (08:00)
== END 2025-01-14 00:03 ==
LOC: ER 17:50
DX: K35.32 Acute appendicitis with perforation, localized peritonitis, and gangrene, without abscess (principal); I13.0 Hypertensive heart and chronic kidney disease with heart failure and stage 1 through stage 4 chronic kidney disease, or unspecified chronic kidney disease; I50.9 Heart failure, unspecified; N18.9 Chronic kidney disease, unspecified; E78.00 Pure hypercholesterolemia, unspecified; Z88.0 Allergy status to penicillin; Z88.8 Allergy status to other drugs, medicaments and biological substances; Z90.49 Acquired absence of other specified parts of digestive tract; Z79.899 Other long term (current) drug therapy
CPT/HCPCS: 36415; 74177; 80053; 81001; 83690; 85025; 87077; 87088; 87186; 96361; 96365; 96367; 96375; 96376; 99285; J0744; J1171; J2270; J2405; J3490; J7030; Q9967

== ENCOUNTER 2025-02-27 16:38 | Outpatient (CLI) | payer MEDICARE, OTHER ==
--- NOTE | 2025-02-28 09:04 | RADIOLOGY REPORT ---
EXAM: DI CHEST,TWO VIEWS CLINICAL HISTORY: COPD COMPARISON: DI CHEST,SINGLE VIEW on DOS: 03/06/24, CHEST,SINGLE VIEW on DOS: 08/21/22, CHEST,TWO VIEWS on DOS: 08/17/22, CHEST,SINGLE VIEW on DOS: 08/03/22, CHEST,TWO VIEWS on DOS: 07/30/22 TECHNIQUE: Frontal and lateral view of the chest was obtained FINDINGS: Lines and Tubes: None Lungs: No focal consolidation. Calcific granulomas again visualized lungs. Pleura: No effusion. No pneumothorax. Cardiomediastinal contours: Unremarkable Bones: No acute osseous abnormality. IMPRESSION: No acute cardiopulmonary disease.
== END 2025-02-27 23:59 | disposition home or self-care (01) ==
LOC: RAD 16:38
PROVIDERS: ATTEND Nurse Practitioner Family
DX: J44.9 Chronic obstructive pulmonary disease, unspecified (principal); J98.4 Other disorders of lung
CPT/HCPCS: 71046